=== PATIENT | male | born 1945 | race Caucasian/White ===

== ENCOUNTER 2017-10-08 09:01 | Day surgery (SDC) | payer OTHER ==
[~2017-10-08 09:01] MED LIST: ACETAMINOPHEN 325 MG TAB PO; OFLOXACIN 0.3 % (OCUFLOX) OPTH SOL 5ML OS; PHENYLEPHRINE HCL 10 % OPHTH. SOL 5ML OS; PROPARACAINE 0.5% OPHTH SOL 15ML OS
[2017-10-08] MEDS ORDERED: LIDOCAINE 1% MDV 20ML VIAL SQ ×2 (09:15)
[2017-10-08] MEDS ORDERED: PHENYLEPHRINE 2.5% OPHTH SOL 2ML As Ordered ×2 (09:46)
[2017-10-08] MEDS ORDERED: OFLOXACIN 0.3 % (OCUFLOX) OPTH SOL 5ML As Ordered ×2 (09:46)
[2017-10-08] MEDS ORDERED: TROPICAMIDE 1% OPHTH SOLN 2ML As Ordered ×2 (09:46)
[2017-10-08] MEDS ORDERED: CYCLOPENTOLATE 2% OPHTH SOLN 2ML BTL As Ordered ×2 (09:46)
[2017-10-08] MEDS ORDERED: MIDAZOLAM INJ 2 MG/2 ML VIAL (J2250) As Ordered ×2 (10:03)
[2017-10-08] MEDS ORDERED: fentaNYL 100 MCG/2 ML INJECTION (J3010) As Ordered ×2 (10:03)
[2017-10-08] MEDS: TROPICAMIDE 1% OPHTH SOLN 2ML OS ×2 (10:07)
[2017-10-08] MEDS: PHENYLEPHRINE 2.5% OPHTH SOL 2ML OS ×2 (10:07)
[2017-10-08] MEDS: LIDOCAINE 3.5 % 1ML OPHTH TOPICAL GEL OU ×2 (10:07)
[2017-10-08] MEDS: CYCLOPENTOLATE 2% OPHTH SOLN 2ML BTL OS ×2 (10:07)
[2017-10-08] MEDS: POVIDONE-IODINE 5% OPHTH PREP SOL 30ML As Ordered ×2 (10:21)
[2017-10-08] MEDS: LIDOCAINE 1% SDV 5 ML VIAL As Ordered ×2 (10:23)
[2017-10-08] MEDS: CEFUROXIME 1MG/0.1ML INTRACAMERAL INJ As Ordered ×2 (10:23)
[2017-10-08] MEDS: BALANCED SALT IRRIGATION SOLUTION 500ML BAG (FOR OR EYE MACHINE) As Ordered ×2 (10:24)
[2017-10-08] MEDS: HEALON DUET (HEALON 10MG/ML 0.55ML & HEALON ENDOCOAT 30MG/ML 0.85ML) As Ordered ×2 (10:29)
[2017-10-08] MEDS ORDERED: TRIMETHOBENZAMIDE 300 MG CAP PO ×2 (11:00)
[2017-10-08] MEDS: KETOROLAC 0.5% OPHTH SOLN OS ×2 (11:01)
[2017-10-08] MEDS: AcetaZOLAMIDE 500 MG ER CAP PO ×2 (11:01)
== END 2017-10-08 11:17 | disposition home or self-care (01) ==
LOC: M SDC 09:01
DX: H25.12 Age-related nuclear cataract, left eye (principal); H26.9 Unspecified cataract (principal); Z79.82 Long term (current) use of aspirin
CPT/HCPCS: 66984

== ENCOUNTER → 2018-01-01 | Outpatient (REF) | payer OTHER | LOC: M LAB REF 11:18 | DX: R35.0 Frequency of micturition (principal) ==

== ENCOUNTER 2018-11-15 12:09 | Emergency (ER) | payer OTHER, SELFPAY ==
[~2018-11-15] VITALS: Ht 172.7 cm; Wt 96.4 kg
[~2018-11-15 12:09] MED LIST changes: -ACETAMINOPHEN 325 MG TAB PO; +ASPI-527 PO; -OFLOXACIN 0.3 % (OCUFLOX) OPTH SOL 5ML OS; -PHENYLEPHRINE HCL 10 % OPHTH. SOL 5ML OS; -PROPARACAINE 0.5% OPHTH SOL 15ML OS
[2018-11-15] MEDS ORDERED: MORPHINE 2 MG/ML 1ML VIAL (J2270) IV PRN (12:45)
[2018-11-15 12:53] LABS: HEMATOCRIT 48.9 % (42.0-52.0); HEMOGLOBIN 16.2 g/dl (13.5-17.5); MEAN CORPUSCULAR HEMOGLOBIN 29.6 pg (27.0-33.0); MEAN CORPUSCULAR HGB CONC 33.1 g/dl (32.0-36.5); MEAN CORPUSCULAR VOLUME 89.2 fl (80.0-96.0); PLATELET COUNT, AUTOMATED 266 10^3/uL (150-450); RED BLOOD COUNT 5.48 10^6/uL (4.30-6.10); WHITE BLOOD COUNT 7.3 10^3/uL (4.0-10.0)
[2018-11-15] MEDS ORDERED: ISOVUE-370 76% 100ML VIAL (Q9967) As Ordered ONE (13:24)
[2018-11-15] MEDS ORDERED: KETOROLAC 30 MG/ML VIAL (J1885) IV ONE (15:30)
[2018-11-15] MEDS ORDERED: OXYC1TAB23 PO (15:43)
[2018-11-15] MEDS ORDERED: KETO10TAB PO (15:43)
[2018-11-15] MEDS ORDERED: CYCL5TAB PO (15:43)
[2018-11-15] MEDS ORDERED: CYCLOBENZAPRINE 10 MG TAB PO ONE (15:45)
[2018-11-15 15:55] VITALS: BP 190/89
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
== END 2018-11-15 16:02 | disposition home or self-care (01) ==
LOC: M ED 12:09
DX: S16.1XXA Strain of muscle, fascia and tendon at neck level, initial encounter (principal); V49.49XA Driver injured in collision with other motor vehicles in traffic accident, initial encounter; Y92.410 Unspecified street and highway as the place of occurrence of the external cause
CPT/HCPCS: 70450; 71275; 72125; 74177; 80047; 85027; 96374; 99284; J1885; Q9967

== ENCOUNTER 2018-11-28 15:24 | Emergency (ER) | payer OTHER ==
[~2018-11-28] VITALS: Ht 172.7 cm; Wt 95.9 kg
[~2018-11-28 15:24] MED LIST changes: +CYCL5TAB PO; +KETO10TAB PO; +OXYC1TAB23 PO
[2018-11-28] MEDS ORDERED: IBUP200C25 PO (15:33)
[2018-11-28 17:52] LABS: BASO # 0.1 10^3/uL (0.0-0.2); BASO % 0.8 % (0.0-1.0); EOS # 0.2 10^3/uL (0.0-0.50); EOS % 1.8 % (0.0-3.0); HEMATOCRIT 49.3 % (42.0-52.0); HEMOGLOBIN 16.4 g/dl (13.5-17.5); LYMPH % 22.1 % (24.0-44.0); MEAN CORPUSCULAR HGB CONC 33.3 g/dl (32.0-36.5); MEAN CORPUSCULAR VOLUME 90.1 fl (80.0-96.0); MONO # 0.8 10^3/uL (0.0-0.8); MONO % 8.4 % (0.0-5.0); NEUTROPHILS % 66.7 % (36.0-66.0); PLATELET COUNT, AUTOMATED 299 10^3/uL (150-450); RED BLOOD COUNT 5.47 10^6/uL (4.30-6.10); WHITE BLOOD COUNT 8.9 10^3/uL (4.0-10.0)
--- NOTE | 2018-11-28 17:59 | REP ---
Clinical: Chest pain and tightness. Technique: PA and lateral. Findings: Mediastinum and cardiac silhouette are normal. Lung reyes demonstrate chronic-appearing interstitial changes. No focal consolidation, effusion, or pneumothorax. Skeletal structures demonstrate age-related degenerative changes. Impression: No obvious acute cardiopulmonary process. Electronically Signed by Hunter Ugarte MD 11/28/2018 05:51 P
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
[2018-11-28 18:04] LABS: INR 0.94; PROTHROMBIN TIME 12.3 SECONDS (11.8-14.0)
[2018-11-28 18:05] LABS: PARTIAL THROMBOPLASTIN TIME 30.3 SECONDS (25.0-38.4)
[2018-11-28 18:23] LABS: ALBUMIN 4.1 GM/DL (3.2-5.2); ALT/SGPT 38 U/L (12-78); BILIRUBIN,DIRECT 0.1 MG/DL (0.0-0.2); BILIRUBIN,TOTAL 0.4 MG/DL (0.2-1.0); BLOOD UREA NITROGEN 14 MG/DL (7-18); CALCIUM LEVEL 9.3 MG/DL (8.8-10.2); CARBON DIOXIDE LEVEL 30 MEQ/L (21-32); CHLORIDE LEVEL 103 MEQ/L (98-107); CK-MB VALUE MASS < 1.0 NG/ML (<3.6); CPK CREATINE PHOSPHOKINASE 82 U/L (39-308); CREATININE FOR GFR 0.82 MG/DL (0.70-1.30); GLOMERULAR FILTRATION RATE > 60.0 (>42); GLUCOSE, FASTING 98 MG/DL (70-100); LIPASE 118 U/L (73-393); MB/CK RELATIVE INDEX 1.22 (< OR =4); NT-PRO BNP 87 PG/ML (<125); POTASSIUM SERUM 4.5 MEQ/L (3.5-5.1); SODIUM LEVEL 138 MEQ/L (136-145); TOTAL PROTEIN 7.9 GM/DL (6.4-8.2); TROPONIN I < 0.02 NG/ML (< 0.10)
[2018-11-28] MEDS ORDERED: ISOVUE-370 76% 100ML VIAL (Q9967) As Ordered ONE (18:26)
[2018-11-28 18:53] VITALS: BP 160/99
--- NOTE | 2018-11-28 19:35 | REPVR ---
EXAM: CT Angiography Chest With Contrast EXAM DATE/TIME: 11/28/2018 6:33 PM CLINICAL HISTORY: 73 years old, male; Chest pain; On breathing TECHNIQUE: Imaging protocol: Computed tomographic angiography of the chest with intravenous contrast. 3D rendering: MIP reconstructed images were created and reviewed. Radiation optimization: All CT scans at this facility use at least one of these dose optimization techniques: automated exposure control; mA and/or kV adjustment per patient size (includes targeted exams where dose is matched to clinical indication); or iterative reconstruction. Contrast material: [id number]; Contrast volume: 75 ml; Contrast route: IV; COMPARISON: CT ANGIO CHEST 11/15/2018 1:53 PM FINDINGS: Pulmonary arteries: Peripheral pulmonary artery evaluation limited by cardiac and respiratory motion artifact. Central pulmonary arteries show no intraluminal defect suggestive of clot. Great vessels off aortic arch: Atherosclerotic calcifications in the coronary vessels. Aorta: No thoracic aortic aneurysm or dissection. Lungs: Pulmonary vascular/interstitial pattern does not suggest active pulmonary edema. No suspicious lung mass or air space process. No central endobronchial lesion. Pleural space: No pleural effusion or pneumothorax. Heart: No pericardial effusion. Lymph nodes: No enlarged mediastinal lymph nodes. Bones/joints: Diffuse idiopathic skeletal hyperostosis (DISH) changes are present. IMPRESSION: 1. No evidence of acute, central pulmonary embolus. Slight limitation in evaluation of peripheral vessels secondary to cardiac and respiratory motion artifact 2. No other acute or concerning focal intrathoracic abnormality. Electronically signed by: Alexander Avila On 11/28/2018 19:34:38 PM
[2018-11-28] MEDS ORDERED: METH1TAB40 PO (20:31)
[2018-11-28] MEDS ORDERED: NAPR500T6 PO (20:31)
[2018-11-28] MEDS ORDERED: VOLT1GEL15 TOP (20:31)
--- NOTE | 2018-11-29 07:16 | ECGEPIP ---
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
== END 2018-11-28 20:40 | disposition home or self-care (01) ==
LOC: M ED 15:24
DX: M19.072 Primary osteoarthritis, left ankle and foot (principal); M62.838 Other muscle spasm; R53.83 Other fatigue; I10 Essential (primary) hypertension; E78.5 Hyperlipidemia, unspecified; K21.9 Gastro-esophageal reflux disease without esophagitis
CPT/HCPCS: 71046; 71275; 73610; 80048; 80076; 82550; 82553; 83690; 83880; 84484; 85025; 85610; 85730; 93005; 99284; Q9967

== ENCOUNTER 2019-02-01 17:08 | Inpatient (IN) | payer MEDICARE, OTHER, SELFPAY ==
[~2019-02-01] VITALS: Ht 172.7 cm; Wt 96.7 kg
[~2019-02-01 17:08] MED LIST changes: +IBUP200C25 PO; +METH1TAB40 PO; +NAPR500T6 PO; +VOLT1GEL15 TOP
[2019-02-01] MEDS ORDERED: ASPI81TA85 PO (17:15)
--- NOTE | 2019-02-01 18:28 | REP ---
Single view chest: 02/01/2019. Indication: Chest pain. Comparison: 11/28/2018. Findings: The lungs are clear. There is no joint effusion or pneumothorax. The cardiac silhouette is unremarkable. Impression: Clear lungs. Electronically Signed by Alexis Garcia DO 02/01/2019 06:19 P
[2019-02-01 18:51] LABS: BASO # 0.1 10^3/uL (0.0-0.2); BASO % 1.2 % (0.0-1.0); EOS # 0.2 10^3/uL (0.0-0.5); EOS % 2.5 % (0.0-3.0); HEMATOCRIT 49.2 % (42.0-52.0); HEMOGLOBIN 16.1 g/dl (13.5-17.5); LYMPH # 1.6 10^3/uL (1.5-5.0); LYMPH % 23.2 % (24.0-44.0); MEAN CORPUSCULAR HEMOGLOBIN 29.5 pg (27.0-33.0); MEAN CORPUSCULAR HGB CONC 32.7 g/dl (32.0-36.5); MEAN CORPUSCULAR VOLUME 90.3 fl (80.0-96.0); MONO # 0.6 10^3/uL (0.0-0.8); MONO % 8.5 % (0.0-5.0); NEUTROPHILS # 4.5 10^3/uL (1.5-8.5); NEUTROPHILS % 64.5 % (36.0-66.0); PLATELET COUNT, AUTOMATED 259 10^3/uL (150-450); RED BLOOD COUNT 5.45 10^6/uL (4.30-6.10); WHITE BLOOD COUNT 6.9 10^3/uL (4.0-10.0)
[2019-02-01] MEDS: LABETALOL HCL 100 MG/20 ML VIAL IV STA ×2 (19:06→19:11)
[2019-02-01 19:24] LABS: ALBUMIN 3.9 GM/DL (3.2-5.2); ALT/SGPT 26 U/L (12-78); BILIRUBIN,DIRECT < 0.1 MG/DL (0.0-0.2); BILIRUBIN,TOTAL 0.4 MG/DL (0.2-1.0); BLOOD UREA NITROGEN 13 MG/DL (7-18); CALCIUM LEVEL 9.7 MG/DL (8.8-10.2); CARBON DIOXIDE LEVEL 27 MEQ/L (21-32); CHLORIDE LEVEL 106 MEQ/L (98-107); CK-MB VALUE MASS 1.2 NG/ML (<3.6); CPK CREATINE PHOSPHOKINASE 105 U/L (39-308); CREATININE FOR GFR 0.72 MG/DL (0.70-1.30); FREE T4 0.97 NG/DL (0.76-1.46); GLOMERULAR FILTRATION RATE > 60.0 (>42); GLUCOSE, FASTING 102 MG/DL (70-100); MB/CK RELATIVE INDEX 1.14 (< OR =4); POTASSIUM SERUM 4.4 MEQ/L (3.5-5.1); SODIUM LEVEL 141 MEQ/L (136-145); TOTAL PROTEIN 7.3 GM/DL (6.4-8.2); TROPONIN I < 0.02 NG/ML (< 0.10)
[2019-02-01] MEDS ORDERED: ISOVUE-370 76% 100ML VIAL (Q9967) As Ordered ONE (19:32)
[2019-02-01] MEDS ORDERED: LABETALOL HCL 100 MG/20 ML VIAL IV STA ×2 (20:06→20:53)
--- NOTE | 2019-02-01 20:34 | REPVR ---
PROCEDURE INFORMATION: Exam: CT Angiography Chest With Contrast Exam date and time: 02/01/2019 7:44 PM Clinical history: 73 years old, male; Other: HTN; Additional info: HTN R/O dissection TECHNIQUE: Imaging protocol: Computed tomographic angiography of the chest with intravenous contrast. 3D rendering: MIP reconstructed images were created and reviewed. Radiation optimization: All CT scans at this facility use at least one of these dose optimization techniques: automated exposure control; mA and/or kV adjustment per patient size (includes targeted exams where dose is matched to clinical indication); or iterative reconstruction. Contrast material: ISOVUE 370; Contrast volume: 100 ml; Contrast route: IV; COMPARISON: CT ANGIO CHEST 11/28/2018 6:32 PM FINDINGS: Pulmonary arteries: No filling defects in the pulmonary arteries to suggest pulmonary emboli. Aorta: Unremarkable. No aortic aneurysm. No aortic dissection. Lungs: Unremarkable. No consolidation. No masses. Pleural space: Unremarkable. No pneumothorax. No pleural effusion. Heart: Unremarkable. No cardiomegaly. No pericardial effusion. Lymph nodes: Unremarkable. No enlarged lymph nodes. Bones/joints: Unremarkable. No acute fracture. Soft tissues: Unremarkable. IMPRESSION: 1. No acute arterial abnormality. Moderate coronary artery calcification. 2. No filling defects in the pulmonary arteries to suggest pulmonary emboli. Electronically signed by: Alexandro Gustafson On 02/01/2019 20:34:38 PM
--- NOTE | 2019-02-01 20:40 | REPVR ---
PROCEDURE INFORMATION: Exam: CT Angiography Abdomen and Pelvis With Contrast Exam date and time: 02/01/2019 7:44 PM Clinical history: 73 years old, male; Other: HTN; Additional info: HTN R/O dissection TECHNIQUE: Imaging protocol: Computed tomographic angiography of the abdomen and pelvis with intravenous contrast material. 3D rendering: MIP reconstructed images were created and reviewed. Radiation optimization: All CT scans at this facility use at least one of these dose optimization techniques: automated exposure control; mA and/or kV adjustment per patient size (includes targeted exams where dose is matched to clinical indication); or iterative reconstruction. Contrast material: ISOVUE 370; Contrast volume: 100 ml; Contrast route: IV; COMPARISON: CT ABD/PEL W/IV CONTRAST ONLY 11/15/2018 1:53 PM FINDINGS: VASCULATURE: Aorta: No aortic aneurysm. No aortic dissection. Celiac trunk and mesenteric arteries: Mild SMA stenosis. Renal arteries: Duplicated right renal arteries. Right iliac arteries: No occlusion or significant stenosis. Left iliac arteries: No occlusion or significant stenosis. ABDOMEN and PELVIS: Liver: No mass. Gallbladder and bile ducts: Unremarkable. No calcified stones. No ductal dilation. Pancreas: Unremarkable. No mass. No ductal dilation. Spleen: Unremarkable. No splenomegaly. Adrenals: Unremarkable. No mass. Kidneys and ureters: Largest right the left inferior pole kidney measures 6.3 cm. Stomach and bowel: Mild colonic diverticulosis without evidence for acute diverticulitis. Right lateral spigelian hernia containing protruding small and large bowel. Mild colonic diverticulosis without evidence for acute diverticulitis. Appendix: No evidence of appendicitis. Intraperitoneal space: Unremarkable. No free air. No significant fluid collection. Retroperitoneal space: Multiple perirenal and/or exophytic cysts or lymphangiomas. Lymph nodes: Unremarkable. No enlarged lymph nodes. Bladder: Severe bladder distention. Reproductive: Severe irregular heterogeneous enhancing prostate gland enlargement measuring 7.7 cm the. Prostate gland protrudes into the bladder and appears irregular, correlate with PSA. Bones/joints: No acute fracture. No dislocation. Soft tissues: Unremarkable. IMPRESSION: 1. No acute arterial abnormality. 2. Severe bladder distention. 3. Severe irregular heterogeneous enhancing prostate gland enlargement measuring 7.7 cm the. 4. Prostate gland protrudes into the bladder and appears irregular, correlate with PSA. 5. Right lateral spigelian hernia containing protruding small and large bowel. 6. Mild colonic diverticulosis without evidence for acute diverticulitis. Electronically signed by: Alexandro Gustafson On 02/01/2019 20:39:35 PM
[2019-02-01] MEDS ORDERED: amLODIPine 10 MG TAB PO ONE (21:45)
[2019-02-01] MEDS ORDERED: NITROGLYCERIN 2% OINT 1 GM *U/D* PKT TOP SCH (22:00)
[2019-02-01] MEDS: LABETALOL 100 MG TAB PO SCH (22:00)
[2019-02-01] MEDS ORDERED: tiZANidine 4 MG TAB PO ONE (22:30)
[2019-02-01] MEDS ORDERED: KETOROLAC 30 MG/ML VIAL (J1885) IV ONE (22:45)
[2019-02-01] MEDS ORDERED: traZODone 25MG PER 1/2 TABLET PO PRN (22:45)
[2019-02-01] MEDS ORDERED: ULTRACET TAB PO PRN (22:45)
[2019-02-02] VITALS (15 sets, daily range): BP systolic 106–210; BP diastolic 64–100
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
[2019-02-02] MEDS ORDERED: NS 500 ML IV ONE (01:30)
[2019-02-02 05:26] LABS: HEMATOCRIT 43.7 % (42.0-52.0); HEMOGLOBIN 14.6 g/dl (13.5-17.5); MEAN CORPUSCULAR HEMOGLOBIN 29.9 pg (27.0-33.0); MEAN CORPUSCULAR HGB CONC 33.4 g/dl (32.0-36.5); MEAN CORPUSCULAR VOLUME 89.5 fl (80.0-96.0); PLATELET COUNT, AUTOMATED 227 10^3/uL (150-450); RED BLOOD COUNT 4.88 10^6/uL (4.30-6.10); WHITE BLOOD COUNT 8.3 10^3/uL (4.0-10.0)
[2019-02-02 05:50] LABS: HEMOGLOBIN A1c 5.7 %
[2019-02-02 05:53] LABS: BLOOD UREA NITROGEN 12 MG/DL (7-18); CALCIUM LEVEL 8.7 MG/DL (8.8-10.2); CARBON DIOXIDE LEVEL 27 MEQ/L (21-32); CHLORIDE LEVEL 103 MEQ/L (98-107); CHOLESTEROL LEVEL 170 MG/DL (<200); CHOLESTEROL RISK RATIO 2.786 (<5); CREATININE FOR GFR 0.83 MG/DL (0.70-1.30); GLOMERULAR FILTRATION RATE > 60.0 (>42); GLUCOSE, FASTING 99 MG/DL (70-100); HDL CHOLESTEROL 61 MG/DL (>40); LDL CHOLESTEROL 88 MG/DL (<100); NON-HDL-C 109 MG/DL; POTASSIUM SERUM 3.9 MEQ/L (3.5-5.1); SODIUM LEVEL 138 MEQ/L (136-145); TRIGLYCERIDES LEVEL 103 MG/DL (<150)
--- NOTE | 2019-02-02 06:23 | ECGEPIP ---
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
[2019-02-02] MEDS: LABETALOL 100 MG TAB PO SCH (09:00)
--- NOTE | 2019-02-02 09:07 | REP ---
Renal vascular ultrasound: Right Kidney: Renal length 12.2 cm. Extraparenchymal renal artery. Peak renal artery flow velocity the 78.8 cm/ sec Peak aortic velocity: 99.9 cm/sec Renal/aortic ratio: 0.8 Intraparenchymal renal arteries. Resistive index: upper pole 0.69 mid pole 0.7 a lower pole 0.70 Acceleration time: upper pole 0.06 mid pole 0.03 lower pole 0.03 Left kidney: Renal length 12.4 cm. Extraparenchymal renal artery: Peak renal artery flow velocity: 116.9 cm/sec. Peak aortic velocity: 99.9 cm/sec Renal/aortic ratio: 1.2 Intraparenchymal renal arteries: Resistive index: Upper pole 0.61 mid pole 0.68 lower pole 0.70 Acceleration time: Upper pole 0.03 mid pole 0.03 lower pole 0.03 Impression: There is no ultrasonographic evidence of renal artery stenosis. Bilateral renal ultrasound: Comparison is the abdomen/pelvis CT dated 11/15/2018. The right kidney measures 12.2 x 6.1 x 5.5 cm. The left kidney measures 12.4 x 5.4 x 6.5 cm. The kidneys are normal size. Renal cortical echogenicity is normal bilaterally. There is no hydronephrosis on the right on the left. There are no renal calculi. There are no solid renal masses. There is a mass exophytic right renal upper pole cyst measuring 3.8 x 4.3 x 6.5 cm. There is a right renal cortical cyst at the mid pole laterally measuring 0.8 x 0.7 x 0.8 cm. These right renal cysts are not significantly changed from the comparison CT. There is an exophytic left renal lower pole cyst measuring 8.0 x 4.5-7.0 cm, not significantly changed from the comparison CT. There are no solid renal masses on the right. No renal calculi are identified. Bladder: Along the posterior inferior wall of the bladder there is a mass protruding into the bladder lumen measuring 4.1 x 3.3 x 4.3 cm. This is immediately adjacent to the prostate. The prostate is enlarged measuring 6.0 x 7.1 x 7.5 cm. Impression: There is a bladder mass along the inferior posterior bladder wall, immediately adjacent to the prostate. I suspect that this is a bladder mass, however, this could represent protrusion of the enlarged prostate into the bladder. The prostate is enlarged. There are bilateral renal cysts as described. There are no solid renal masses. No hydronephrosis. No renal calculi. Electronically Signed by Erick Oakley MD 02/02/2019 08:58 A
[2019-02-02] MEDS: LIDOCAINE 5% (LIDODERM) PATCH TD SCH (09:10)
[2019-02-02] MEDS: amLODIPine 10 MG TAB PO SCH (09:12)
[2019-02-02] MEDS: hydrALAZINE INJ 20 MG/ML VIAL IV PRN ×2 (11:44→17:36)
[2019-02-02] MEDS ORDERED: AMLO10TA5 PO (12:27)
[2019-02-02] MEDS ORDERED: TOPR25TA PO (12:27)
[2019-02-02] MEDS ORDERED: TIZA4TAB4 PO (12:27)
[2019-02-02] MEDS ORDERED: TRAZ-252 PO (12:27)
[2019-02-02] MEDS ORDERED: TRAM37.53 PO (12:27)
[2019-02-02] MEDS ORDERED: LISI20TA19 PO (12:27)
--- NOTE | 2019-02-02 12:55 | IPNPDOC ---
Text Note Date of Service The patient was seen on 02/02/19. NOTE Subjective: Patient continues to be anxious, his blood pressure fluctuates from 160 to 210. Patient denies fever, chills, nausea, vomiting, chest pain, palpitations, diarrhea or dysuria Objective: Objective:VITAL SIGNS: Please see below. GENERAL APPEARANCE: Well-nourished, well-developed, not in apparent distress HEENT: Normocephalic, atraumatic. Mucous members moist and pink CARDIOVASCULAR: Regular rate and rhythm. No murmurs, rubs or gallops. Radial pulses are intact. There is no lower extremity edema LUNGS: CTA ABDOMEN: Bowel sounds are hypoactive. Abdomen is soft and nontender. MUSCULOSKELETAL: Range of motion is intact in all 4 extremities NEUROLOGICAL: Cranial nerves II-12 are grossly intact. Speech is not dysarthric Assessment and plan: Patient is 73 years old male with past medical history of poorly controlled hypertension, osteoarthritis presented hospital with hypertensive urgency Hypertensive urgency Secondary to noncompliance to medication, stress Hydralazine when necessary with parameters I will start lisinopril with chlorthalidone. No renal stenosis on the Doppler ultrasound Labetalol on hold due to bradycardia Cardiac diet Chronic cervical neck and back pain Secondary to spinal stenosis and osteoarthritis Pain management History of retinal detachment with cardiac surgery Follow-up with mobile nurse in the outpatient settings Deep vein thrombosis (DVT) prophylaxis VS,Fishbone, I+O VS, Fishbone, I+O Laboratory Tests 02/01/19 17:57 02/02/19 05:10 Vital Signs Date Time Temp Pulse Resp B/P (MAP) Pulse Ox O2 Delivery O2 Flow Rate FiO2 02/02/19 12:02 69 138/76 (96) 02/02/19 08:00 97.4 16 96 Room Air I&O- Last 24 Hours up to 6 AM 02/02/19 06:00 Output Total 450 ml Balance -450 ml RUSTAM JONES DO Feb 02, 2019 12:55
[2019-02-02] MEDS ORDERED: CHLORTHALIDONE 25 MG TAB PO ONE (13:00)
[2019-02-02] MEDS ORDERED: LISINOPRIL 20 MG TAB PO ONE ×2 (13:00→17:45)
[2019-02-02] MEDS: CHLORTHALIDONE 12.5MG PER 1/2 TABLET PO SCH (18:04)
[2019-02-02] MEDS ORDERED: **NOTE PATIENT COMMENT** MISC XX SCH (21:00)
[2019-02-02] MEDS: tiZANidine 4 MG TAB PO PRN (21:10)
[2019-02-02] MEDS: METOPROLOL TART 25 MG TABLET PO SCH (21:10)
[2019-02-03] VITALS: BP 137/57
[2019-02-03] MEDS: SIMETHICONE 80 MG CHEW TAB PO SCH ×3 (00:31→11:57)
[2019-02-03 04:00] VITALS: BP 126/70
[2019-02-03] MEDS: tiZANidine 4 MG TAB PO PRN ×2 (05:09→13:57)
[2019-02-03 05:52] LABS: HEMATOCRIT 46.9 % (42.0-52.0); HEMOGLOBIN 15.3 g/dl (13.5-17.5); MEAN CORPUSCULAR HEMOGLOBIN 29.2 pg (27.0-33.0); MEAN CORPUSCULAR HGB CONC 32.6 g/dl (32.0-36.5); MEAN CORPUSCULAR VOLUME 89.5 fl (80.0-96.0); PLATELET COUNT, AUTOMATED 246 10^3/uL (150-450); RED BLOOD COUNT 5.24 10^6/uL (4.30-6.10); WHITE BLOOD COUNT 11.5 10^3/uL (4.0-10.0)
[2019-02-03 06:07] LABS: BLOOD UREA NITROGEN 13 MG/DL (7-18); CARBON DIOXIDE LEVEL 29 MEQ/L (21-32); CHLORIDE LEVEL 103 MEQ/L (98-107); CREATININE FOR GFR 1.04 MG/DL (0.70-1.30); GLOMERULAR FILTRATION RATE > 60.0 (>42); GLUCOSE, FASTING 96 MG/DL (70-100); POTASSIUM SERUM 3.9 MEQ/L (3.5-5.1); SODIUM LEVEL 137 MEQ/L (136-145)
[2019-02-03] MEDS: METOPROLOL TART 25 MG TABLET PO SCH (07:45)
[2019-02-03 08:00] VITALS: BP 111/59
[2019-02-03 08:43] VITALS: BP 111/59
[2019-02-03] MEDS: amLODIPine 10 MG TAB PO SCH (08:43)
[2019-02-03] MEDS ORDERED: CHLORTHALIDONE 12.5MG PER 1/2 TABLET PO SCH (09:00)
[2019-02-03] MEDS ORDERED: LISINOPRIL 40 MG TAB PO SCH (09:00)
[2019-02-03] MEDS ORDERED: TAMSULOSIN 0.4 MG CAP PO SCH (09:00)
[2019-02-03] MEDS: CHLORTHALIDONE 12.5MG PER 1/2 TABLET PO SCH (09:04)
[2019-02-03] MEDS: LIDOCAINE 5% (LIDODERM) PATCH TD SCH (09:05)
[2019-02-03] MEDS ORDERED: ACETAMINOPHEN TAB 650MG DOSE (2X325MG) PO PRN (11:45)
[2019-02-03 12:00] VITALS: BP 144/70
--- NOTE | 2019-02-03 12:01 | IPNPDOC ---
Text Note Date of Service The patient was seen on 02/03/19. NOTE Subjective: Patient's blood pressure is under control in the morning. Later today he developed low-grade fever of 100.2. He denies any chills, shortness of breath, palpitations, cough, diarrhea or dysuria Objective: Objective:VITAL SIGNS: Please see below. GENERAL APPEARANCE: Well-nourished, well-developed, not in apparent distress HEENT: Normocephalic, atraumatic. Mucous members moist and pink CARDIOVASCULAR: Regular rate and rhythm. No murmurs, rubs or gallops. Radial pulses are intact. There is no lower extremity edema LUNGS: CTA ABDOMEN: Bowel sounds are hypoactive. Abdomen is soft and nontender. MUSCULOSKELETAL: Range of motion is intact in all 4 extremities NEUROLOGICAL: Cranial nerves II-12 are grossly intact. Speech is not dysarthric Assessment and plan: Patient is 73 years old male with past medical history of poorly controlled hypertension, osteoarthritis presented hospital with hypertensive urgency Hypertensive urgency Secondary to noncompliance to medication, stress Hydralazine when necessary with parameters I started lisinopril with chlorthalidone. No renal stenosis on the Doppler ultrasound Labetalol on hold due to bradycardia Cardiac diet Chronic cervical neck and back pain Secondary to spinal stenosis and osteoarthritis Pain management History of retinal detachment Follow-up with job counselor in the outpatient settings Low-grade fever I will check blood culture, respiratory panel, chest x-ray, pro-calcitonin Tylenol when necessary Deep vein thrombosis (DVT) prophylaxis VS,Fishbone, I+O VS, Fishbone, I+O Laboratory Tests 02/03/19 05:35 Vital Signs Date Time Temp Pulse Resp B/P (MAP) Pulse Ox O2 Delivery O2 Flow Rate FiO2 02/03/19 08:43 57 111/59 02/03/19 08:00 99.2 18 97 Room Air I&O- Last 24 Hours up to 6 AM 02/03/19 06:00 Intake Total 600 ml Output Total 0 ml Balance 600 ml RUSTAM JONES DO Feb 03, 2019 12:01
--- NOTE | 2019-02-03 13:44 | REP ---
Chest x-ray: Two views. History: Pneumonia. Comparison study: February 01 2019. Findings: The lungs are symmetrically aerated and free of infiltrate. Pleural angles are sharp. EKG electrodes are seen. Heart is not enlarged. Pulmonary vasculature is not increased. Impression: No infiltrate seen. No acute disease. Electronically Signed by Thomas Caban MD 02/03/2019 01:36 P
[2019-02-03 14:00] VITALS: BP 150/80
[2019-02-03] MEDS ORDERED: CHLO125TA PO (15:05)
[2019-02-03] MEDS ORDERED: LIDO5TD TD (15:05)
[2019-02-03] MEDS ORDERED: METO1TAB87 PO (15:05)
[2019-02-03] MEDS ORDERED: SIME80TA PO (15:05)
[2019-02-03] MEDS ORDERED: FLOM0.4C39 PO (15:05)
[2019-02-03] MEDS ORDERED: LISI40TA PO (15:05)
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
== END 2019-02-03 16:05 | disposition home or self-care (01) | DRG 305 ==
LOC: M ED 17:08 → M ED INP 17:09 → M PCU 23:30 → INTOOBSV 02-03 12:01 → OBSVTOIN 02-03 12:01
PROVIDERS: ADMIT General Practice; ATTEND Internal Medicine
DX: I16.0 Hypertensive urgency (principal); M54.12 Radiculopathy, cervical region; M54.16 Radiculopathy, lumbar region; I25.10 Atherosclerotic heart disease of native coronary artery without angina pectoris; Z98.42 Cataract extraction status, left eye; Z96.1 Presence of intraocular lens; Z87.891 Personal history of nicotine dependence; F43.10 Post-traumatic stress disorder, unspecified; Z91.14 Patient's other noncompliance with medication regimen; R50.9 Fever, unspecified; Z91.048 Other nonmedicinal substance allergy status

== ENCOUNTER 2019-02-22 10:13 | Emergency (ER) | payer MEDICARE, SELFPAY ==
[~2019-02-22] VITALS: Ht 172.7 cm; Wt 90.9 kg
[2019-02-22 10:13] VITALS: BP 158/78
[~2019-02-22 10:13] MED LIST changes: +AMLO10TA5 PO; +ASPI81TA85 PO; +CHLO125TA PO; +FLOM0.4C39 PO; +LIDO5TD TD; +LISI20TA19 PO; +LISI40TA PO; +METO1TAB87 PO; +SIME80TA PO; +TIZA4TAB4 PO; +TOPR25TA PO; +TRAM37.53 PO; +TRAZ-252 PO
[2019-02-22] MEDS ORDERED: TRAZ-252 PO (10:41)
[2019-02-22] MEDS ORDERED: TIZA4CAP PO (10:41)
== END 2019-02-22 10:50 | disposition home or self-care (01) ==
LOC: M ED 10:13
DX: M54.89 Other dorsalgia (principal); R01.1 Cardiac murmur, unspecified; F41.9 Anxiety disorder, unspecified; I10 Essential (primary) hypertension; Z76.0 Encounter for issue of repeat prescription; G47.00 Insomnia, unspecified; F43.10 Post-traumatic stress disorder, unspecified; K21.9 Gastro-esophageal reflux disease without esophagitis; N40.0 Benign prostatic hyperplasia without lower urinary tract symptoms; Z79.82 Long term (current) use of aspirin; Z79.899 Other long term (current) drug therapy; Z91.89 Other specified personal risk factors, not elsewhere classified

== ENCOUNTER → 2019-06-01 | Outpatient (REF) | payer SELFPAY ==
[~2019-06-01] MED LIST changes: +TIZA4CAP PO
== END ==
LOC: M LAB REF 09:42
PROVIDERS: ATTEND Physician Assistant
DX: R31.0 Gross hematuria (principal)

== ENCOUNTER 2021-06-23 16:56 | Inpatient (IN) | payer MEDICARE, SELFPAY ==
[~2021-06-23] VITALS: Ht 172.7 cm; Wt 98.3 kg
[~2021-06-23 16:56] MED LIST changes: -AMLO10TA5 PO; +AMLO1TAB25 PO; -ASPI81TA85 PO; +ASPI81TA86 PO; -LISI20TA19 PO; +LISI20TA35 PO; -LISI40TA PO; +LISI40TA4 PO; +METH-1164 PO; -METH1TAB40 PO; +SIME80CH5 PO; -SIME80TA PO; +TIZA10TA PO; -TIZA4TAB4 PO
[2021-06-23 18:19] LABS: BASO # 0.1 10^3/uL (0.0-0.2); BASO % 0.8 % (0.0-1.0); EOS # 0.2 10^3/uL (0.0-0.5); EOS % 2.3 % (0.0-3.0); HEMATOCRIT 43.5 % (42.0-52.0); HEMOGLOBIN 14.4 g/dl (13.5-17.5); LYMPH # 1.2 10^3/uL (1.5-5.0); LYMPH % 13.1 % (24.0-44.0); MEAN CORPUSCULAR HEMOGLOBIN 28.9 pg (27.0-33.0); MEAN CORPUSCULAR HGB CONC 33.1 g/dl (32.0-36.5); MEAN CORPUSCULAR VOLUME 87.2 fl (80.0-96.0); MONO # 1.1 10^3/uL (0.0-0.8); MONO % 11.6 % (2.0-8.0); NEUTROPHILS # 6.6 10^3/uL (1.5-8.5); PLATELET COUNT, AUTOMATED 267 10^3/uL (150-450); RED BLOOD COUNT 4.99 10^6/uL (4.30-6.10); WHITE BLOOD COUNT 9.1 10^3/uL (4.0-10.0)
[2021-06-23] MEDS ORDERED: LIDOCAINE 2% 5ML JELLY UROJET TOP ONE (18:25)
[2021-06-23 18:46] LABS: CK-MB VALUE MASS < 1.0 NG/ML (<3.6); CPK CREATINE PHOSPHOKINASE 95 U/L (39-308); MB/CK RELATIVE INDEX 1.05 (< OR =4)
[2021-06-23 18:53] LABS: ALBUMIN 3.8 GM/DL (3.2-5.2); BILIRUBIN,DIRECT 0.1 MG/DL (0.0-0.2); BILIRUBIN,TOTAL 0.4 MG/DL (0.2-1.0); TOTAL PROTEIN 7.4 GM/DL (6.4-8.2)
[2021-06-23 19:21] LABS: RSV AMPLIFICATION NEGATIVE (NEGATIVE)
[2021-06-23] MEDS ORDERED: MORPHINE 2 MG/ML 1ML VIAL IV ONE (19:30)
[2021-06-23] MEDS ORDERED: hydrALAZINE 20MG/ML 1ML VIAL (J0360 PER 20MG) IV ONE ×2 (20:20→22:30)
[2021-06-23] MEDS ORDERED: FLOM0.4C39 PO (20:54)
[2021-06-23] MEDS ORDERED: HOME MED LIST COMPLETE! XX SCH (21:00)
[2021-06-23] MEDS ORDERED: HYDROMORPHONE HCL 0.5 MG/ 0.5 ML SYRINGE (J1170 PER 1) IV PRN (22:40)
[2021-06-23] MEDS: NS 1,000 ML IV SCH (23:45)
[2021-06-24] VITALS (7 sets, daily range): BP systolic 152–200; BP diastolic 70–101
[2021-06-24 00:44] LABS: HEMATOCRIT 43.4 % (42.0-52.0); HEMOGLOBIN 14.4 g/dl (13.5-17.5)
[2021-06-24] MEDS ORDERED: hydrALAZINE 20MG/ML 1ML VIAL (J0360 PER 20MG) IV ONE (02:00)
[2021-06-24] MEDS ORDERED: hydrALAZINE 20MG/ML 1ML VIAL (J0360 PER 20MG) IV PRN (03:00)
[2021-06-24] MEDS ORDERED: **hydrALAZINE** 10 MG TAB PO PRN (04:00)
[2021-06-24] MEDS ORDERED: cloNIDine 0.1MG TABLET PO ONE (06:00)
[2021-06-24] MEDS: NS 1,000 ML IV SCH (06:24)
[2021-06-24 06:39] LABS: HEMATOCRIT 44.8 % (42.0-52.0); HEMOGLOBIN 14.8 g/dl (13.5-17.5)
[2021-06-24 07:09] LABS: CREATININE FOR GFR 1.85 MG/DL (0.70-1.30); GLOMERULAR FILTRATION RATE 38.2 (>42)
[2021-06-24] MEDS: TAMSULOSIN 0.4 MG CAP PO SCH (09:02)
[2021-06-24] MEDS ORDERED: NORCO, ANEXSIA 5/325MG TABLET (HYDROcodone/ACETAMINOPHEN) PO PRN (09:50)
[2021-06-24] MEDS ORDERED: ACETAMINOPHEN TAB 650MG DOSE (2X325MG) PO PRN (09:50)
[2021-06-24] MEDS: CARVedilol 3.125 MG TAB PO SCH ×2 (10:22→20:09)
[2021-06-24 11:56] LABS: HEMATOCRIT 41.3 % (42.0-52.0)
[2021-06-24] MEDS: **hydrALAZINE HCL** 25 MG TAB PO PRN ×2 (12:27→18:50)
[2021-06-25 06:00] VITALS: BP 172/90
[2021-06-25 06:01] LABS: BASO # 0.1 10^3/uL (0.0-0.2); BASO % 0.7 % (0.0-1.0); EOS # 0.2 10^3/uL (0.0-0.5); EOS % 2.4 % (0.0-3.0); HEMATOCRIT 41.8 % (42.0-52.0); HEMOGLOBIN 14.1 g/dl (13.5-17.5); LYMPH # 1.9 10^3/uL (1.5-5.0); LYMPH % 19.7 % (24.0-44.0); MEAN CORPUSCULAR HEMOGLOBIN 29.4 pg (27.0-33.0); MEAN CORPUSCULAR HGB CONC 33.7 g/dl (32.0-36.5); MEAN CORPUSCULAR VOLUME 87.1 fl (80.0-96.0); MONO % 10.6 % (2.0-8.0); NEUTROPHILS # 6.3 10^3/uL (1.5-8.5); NEUTROPHILS % 66.2 % (36.0-66.0); PLATELET COUNT, AUTOMATED 292 10^3/uL (150-450); WHITE BLOOD COUNT 9.6 10^3/uL (4.0-10.0)
[2021-06-25 06:33] LABS: CREATININE FOR GFR 1.34 MG/DL (0.70-1.30); GLOMERULAR FILTRATION RATE 55.5 (>42); POTASSIUM SERUM 3.7 MEQ/L (3.5-5.1)
[2021-06-25] MEDS: CARVedilol 3.125 MG TAB PO SCH ×2 (10:22→20:32)
[2021-06-25] MEDS: TAMSULOSIN 0.4 MG CAP PO SCH (10:22)
[2021-06-25] MEDS: **hydrALAZINE HCL** 25 MG TAB PO PRN (10:24)
[2021-06-25] MEDS: lisinopriL 5 MG TAB PO SCH (13:50)
[2021-06-25 14:00] VITALS: BP 140/70
[2021-06-25 18:00] VITALS: BP 158/80
[2021-06-25] MEDS: RAMELTEON 8 MG TAB (ROZEREM) PO PRN (21:23)
[2021-06-26 04:45] LABS: BASO # 0.1 10^3/uL (0.0-0.2); BASO % 0.6 % (0.0-1.0); EOS # 0.4 10^3/uL (0.0-0.5); EOS % 3.3 % (0.0-3.0); HEMATOCRIT 43.7 % (42.0-52.0); HEMOGLOBIN 14.6 g/dl (13.5-17.5); LYMPH # 1.6 10^3/uL (1.5-5.0); LYMPH % 14.8 % (24.0-44.0); MEAN CORPUSCULAR HEMOGLOBIN 29.2 pg (27.0-33.0); MEAN CORPUSCULAR HGB CONC 33.4 g/dl (32.0-36.5); MEAN CORPUSCULAR VOLUME 87.4 fl (80.0-96.0); MONO # 1.2 10^3/uL (0.0-0.8); MONO % 10.7 % (2.0-8.0); NEUTROPHILS # 7.8 10^3/uL (1.5-8.5); NEUTROPHILS % 70.3 % (36.0-66.0); PLATELET COUNT, AUTOMATED 320 10^3/uL (150-450); WHITE BLOOD COUNT 11.1 10^3/uL (4.0-10.0)
[2021-06-26 05:13] LABS: CALCIUM LEVEL 8.6 MG/DL (8.8-10.2); CREATININE FOR GFR 1.35 MG/DL (0.70-1.30)
[2021-06-26 06:07] VITALS: BP 110/64
[2021-06-26] MEDS: TAMSULOSIN 0.4 MG CAP PO SCH (09:02)
[2021-06-26] MEDS: lisinopriL 5 MG TAB PO SCH (09:03)
[2021-06-26] MEDS: CARVedilol 3.125 MG TAB PO SCH ×2 (09:03→21:00)
[2021-06-26] MEDS: MIRALAX *UNIT DOSE* 17GM PACKET PO SCH (13:38)
[2021-06-26 14:00] VITALS: BP 130/65
[2021-06-26 18:00] VITALS: BP 118/56
[2021-06-26] MEDS: RAMELTEON 8 MG TAB (ROZEREM) PO PRN (21:15)
[2021-06-26 21:20] VITALS: BP 92/64
[2021-06-27 04:14] VITALS: BP 140/73
[2021-06-27 06:20] LABS: BASO # 0.1 10^3/uL (0.0-0.2); BASO % 0.7 % (0.0-1.0); EOS # 0.5 10^3/uL (0.0-0.5); EOS % 3.8 % (0.0-3.0); HEMATOCRIT 45.7 % (42.0-52.0); HEMOGLOBIN 15.2 g/dl (13.5-17.5); LYMPH # 1.9 10^3/uL (1.5-5.0); LYMPH % 15.3 % (24.0-44.0); MEAN CORPUSCULAR HGB CONC 33.3 g/dl (32.0-36.5); MEAN CORPUSCULAR VOLUME 87.2 fl (80.0-96.0); MONO # 1.4 10^3/uL (0.0-0.8); MONO % 11.5 % (2.0-8.0); NEUTROPHILS # 8.3 10^3/uL (1.5-8.5); NEUTROPHILS % 68.3 % (36.0-66.0); PLATELET COUNT, AUTOMATED 353 10^3/uL (150-450); RED BLOOD COUNT 5.24 10^6/uL (4.30-6.10); WHITE BLOOD COUNT 12.1 10^3/uL (4.0-10.0)
[2021-06-27 06:34] LABS: CALCIUM LEVEL 9.3 MG/DL (8.8-10.2); CREATININE FOR GFR 1.38 MG/DL (0.70-1.30); GLOMERULAR FILTRATION RATE 53.6 (>42); POTASSIUM SERUM 4.1 MEQ/L (3.5-5.1)
[2021-06-27] MEDS: MIRALAX *UNIT DOSE* 17GM PACKET PO SCH (10:00)
[2021-06-27] MEDS: lisinopriL 5 MG TAB PO SCH (10:00)
[2021-06-27] MEDS: TAMSULOSIN 0.4 MG CAP PO SCH (10:00)
[2021-06-27] MEDS: CARVedilol 3.125 MG TAB PO SCH ×2 (10:00→21:07)
[2021-06-27 14:00] VITALS: BP 107/76
[2021-06-27 21:00] VITALS: BP 133/75
[2021-06-27] MEDS: RAMELTEON 8 MG TAB (ROZEREM) PO PRN (21:07)
[2021-06-28 05:57] VITALS: BP 116/54
[2021-06-28 07:48] LABS: HEMATOCRIT 43.2 % (42.0-52.0); HEMOGLOBIN 14.2 g/dl (13.5-17.5); MEAN CORPUSCULAR HEMOGLOBIN 29.2 pg (27.0-33.0); MEAN CORPUSCULAR HGB CONC 32.9 g/dl (32.0-36.5); MEAN CORPUSCULAR VOLUME 88.9 fl (80.0-96.0); PLATELET COUNT, AUTOMATED 337 10^3/uL (150-450); RED BLOOD COUNT 4.86 10^6/uL (4.30-6.10); WHITE BLOOD COUNT 10.3 10^3/uL (4.0-10.0)
[2021-06-28 08:07] LABS: BLOOD UREA NITROGEN 24 MG/DL (7-18); CALCIUM LEVEL 9.4 MG/DL (8.8-10.2); CARBON DIOXIDE LEVEL 31 MEQ/L (21-32); CHLORIDE LEVEL 102 MEQ/L (98-107); CREATININE FOR GFR 1.15 MG/DL (0.70-1.30); GLOMERULAR FILTRATION RATE > 60.0 (>42); GLUCOSE, FASTING 105 MG/DL (70-100); MAGNESIUM LEVEL 1.7 MG/DL (1.8-2.4); POTASSIUM SERUM 4.6 MEQ/L (3.5-5.1); SODIUM LEVEL 136 MEQ/L (136-145)
[2021-06-28] MEDS: MIRALAX *UNIT DOSE* 17GM PACKET PO SCH (08:16)
[2021-06-28] MEDS: TAMSULOSIN 0.4 MG CAP PO SCH (08:16)
[2021-06-28 08:17] VITALS: BP 137/74
[2021-06-28] MEDS: lisinopriL 5 MG TAB PO SCH (08:17)
[2021-06-28] MEDS: CARVedilol 3.125 MG TAB PO SCH (08:17)
[2021-06-28] MEDS ORDERED: MAGNESIUM OXIDE 400MG TAB (MAG-OX) PO ONE (08:30)
[2021-06-28] MEDS ORDERED: AMLO1TAB25 PO (09:01)
[2021-06-28] MEDS ORDERED: MIRA1POW3 PO (09:01)
[2021-06-28] MEDS ORDERED: LISI5TAB11 PO (09:01)
[2021-06-28] MEDS ORDERED: CARV3.12 PO (09:01)
[2021-06-28] MEDS ORDERED: FLOM0.4C39 PO (12:18)
== END 2021-06-28 12:52 | disposition home or self-care (01) | DRG 694 ==
LOC: M ED 16:56 → M ED INP 22:38 → ENRESERV 06-24 02:00 → M MSPAV 06-24 04:16
PROVIDERS: ADMIT Internal Medicine; ATTEND Family Medicine
DX: N13.30 Unspecified hydronephrosis (principal); N17.9 Acute kidney failure, unspecified; N40.1 Benign prostatic hyperplasia with lower urinary tract symptoms; Z87.891 Personal history of nicotine dependence; R31.9 Hematuria, unspecified; I16.0 Hypertensive urgency; K59.00 Constipation, unspecified; R33.9 Retention of urine, unspecified; N32.0 Bladder-neck obstruction; Z79.899 Other long term (current) drug therapy; Z20.822 Contact with and (suspected) exposure to COVID-19; Z91.048 Other nonmedicinal substance allergy status

== ENCOUNTER → 2021-07-25 | Outpatient (REF) | payer MEDICARE ==
[~2021-07-25] MED LIST changes: +CARV3.12 PO; +LISI5TAB11 PO; +MIRA1POW3 PO
== END ==
LOC: M SMT PRO 09:08
PROVIDERS: ATTEND Urology
DX: R97.20 Elevated prostate specific antigen [PSA] (principal)

== ENCOUNTER → 2021-08-09 | Outpatient (CLI) | payer SELFPAY | LOC: M WHC 14:16 | PROVIDERS: ATTEND Urology | DX: N28.1 Cyst of kidney, acquired (principal); N40.2 Nodular prostate without lower urinary tract symptoms; R97.20 Elevated prostate specific antigen [PSA] ==

== ENCOUNTER → 2021-09-13 | Outpatient (REF) | payer MEDICARE ==
[~2021-09-13] MED LIST changes: +BACTDSTA PO; +OXYB5TAB10 PO; +PYRI1TAB5 PO
== END ==
LOC: M SMT 15:03
PROVIDERS: ATTEND Urology
DX: R97.20 Elevated prostate specific antigen [PSA] (principal); Z79.899 Other long term (current) drug therapy

== ENCOUNTER → 2021-09-19 | Outpatient (CLI) | payer SELFPAY ==
[~2021-09-19] MED LIST changes: -OXYB5TAB10 PO; -PYRI1TAB5 PO
== END ==
LOC: M LABSMTC 09:57
PROVIDERS: ATTEND Anesthesiology
DX: Z11.52 Encounter for screening for COVID-19 (principal)

== ENCOUNTER → 2021-09-21 | Outpatient (CLI) | payer SELFPAY, MEDICARE ==
[~2021-09-21] MED LIST changes: +OXYB5TAB10 PO; +PYRI1TAB5 PO
[2021-09-21 10:42] LABS: HEMATOCRIT 46.1 % (42.0-52.0); HEMOGLOBIN 14.9 g/dl (13.5-17.5); MEAN CORPUSCULAR HEMOGLOBIN 28.8 pg (27.0-33.0); MEAN CORPUSCULAR HGB CONC 32.3 g/dl (32.0-36.5); PLATELET COUNT, AUTOMATED 305 10^3/uL (150-450); RED BLOOD COUNT 5.18 10^6/uL (4.30-6.10); WHITE BLOOD COUNT 8.8 10^3/uL (4.0-10.0)
[2021-09-21 10:52] LABS: INR 1.01; PROTHROMBIN TIME 13.7 SECONDS (12.7-14.5)
[2021-09-21 11:11] LABS: ALBUMIN 3.5 GM/DL (3.2-5.2); ALT/SGPT 19 U/L (12-78); BILIRUBIN,TOTAL 0.6 MG/DL (0.2-1.0); BLOOD UREA NITROGEN 10 MG/DL (7-18); CARBON DIOXIDE LEVEL 28 MEQ/L (21-32); CHLORIDE LEVEL 104 MEQ/L (98-107); CREATININE FOR GFR 0.78 MG/DL (0.70-1.30); GLOMERULAR FILTRATION RATE > 60.0 (>42); GLUCOSE, FASTING 99 MG/DL (70-100); POTASSIUM SERUM 4.5 MEQ/L (3.5-5.1); SODIUM LEVEL 137 MEQ/L (136-145); TOTAL PROTEIN 7.1 GM/DL (6.4-8.2)
== END ==
LOC: M WUC 08:15
PROVIDERS: ATTEND Urology
DX: R97.20 Elevated prostate specific antigen [PSA] (principal)

== ENCOUNTER 2021-09-24 11:23 | Day surgery (SDC) | payer SELFPAY ==
[~2021-09-24] VITALS: Ht 172.7 cm; Wt 92.5 kg
[~2021-09-24 11:23] MED LIST changes: -BACTDSTA PO; +CIPROFLOXACIN 400 MG in IV 1 EA IV ONE; -OXYB5TAB10 PO; -PYRI1TAB5 PO; +cefTRIAXone SOD 1 GM in D5W MINI-BAG PLUS 50 ML IV ONE
[2021-09-24] MEDS ORDERED: LR 1,000 ML IV SCH ×2 (12:25→16:25)
[2021-09-24] MEDS ORDERED: BACTDSTA PO (13:00)
[2021-09-24] MEDS ORDERED: fentaNYL 100 MCG/2 ML INJECTION As Ordered ONE ×2 (13:53→15:41)
[2021-09-24] MEDS ORDERED: SUCCINYLCHOLINE 100 MG/5 ML SYRINGE (J0330) As Ordered ONE (15:07)
[2021-09-24] MEDS ORDERED: ROCURONIUM BROMIDE 50 MG/5 ML VIAL As Ordered ONE (15:07)
[2021-09-24] MEDS ORDERED: ONDANSETRON 4MG 2ML VIAL As Ordered ONE (15:08)
[2021-09-24] MEDS ORDERED: dexameTHASONE 4 MG/ML 1ML VIAL (J1100 PER 1MG) As Ordered ONE (15:08)
[2021-09-24] MEDS ORDERED: ACETAMINOPHEN 1000MG 100ML IV BTL (OFIRMEV) (J0131 PER 10MG) As Ordered ONE (15:09)
[2021-09-24] MEDS ORDERED: propofoL 200 MG/20 ML VIAL As Ordered ONE ×2 (15:13→15:37)
[2021-09-24] MEDS ORDERED: ePHEDrine SULFATE 25 MG/5 ML(5MG/ML) SYRINGE As Ordered ONE (15:21)
[2021-09-24] MEDS ORDERED: PHENYLephrine 500MCG 5ML (100MCG/ML) SYRINGE As Ordered ONE (15:21)
[2021-09-24] MEDS ORDERED: ONDANSETRON 4MG 2ML VIAL IV PRN ×2 (16:25→16:40)
[2021-09-24] MEDS ORDERED: oxyCODONE 5MG TAB PO PRN (16:25)
[2021-09-24] MEDS ORDERED: ACETAMINOPHEN TAB 650MG DOSE (2X325MG) PO PRN (16:40)
[2021-09-24] MEDS ORDERED: NORCO, ANEXSIA 5/325MG TABLET (HYDROcodone/ACETAMINOPHEN) PO PRN (16:40)
[2021-09-24] MEDS: fentaNYL 100 MCG/2 ML INJECTION IV PRN ×4 (17:11→17:27)
[2021-09-24] MEDS: D5W/0.45% SODIUM CHLORIDE 1,000 ML IV SCH (19:04)
[2021-09-24 19:10] VITALS: BP 113/55
[2021-09-24 20:10] VITALS: BP 137/82
[2021-09-24] MEDS: CARVedilol 3.125 MG TAB PO SCH ×2 (21:00→22:46)
[2021-09-24 21:10] VITALS: BP 125/68
[2021-09-24 21:43] LABS: BASO % 0.2 % (0.0-1.0); HEMATOCRIT 43.8 % (42.0-52.0); HEMOGLOBIN 14.3 g/dl (13.5-17.5); LYMPH # 0.6 10^3/uL (1.5-5.0); LYMPH % 4.6 % (24.0-44.0); MEAN CORPUSCULAR HEMOGLOBIN 29.4 pg (27.0-33.0); MEAN CORPUSCULAR HGB CONC 32.6 g/dl (32.0-36.5); MEAN CORPUSCULAR VOLUME 89.9 fl (80.0-96.0); MONO # 0.2 10^3/uL (0.0-0.8); MONO % 1.7 % (2.0-8.0); NEUTROPHILS # 12.4 10^3/uL (1.5-8.5); NEUTROPHILS % 93.1 % (36.0-66.0); PLATELET COUNT, AUTOMATED 332 10^3/uL (150-450); RED BLOOD COUNT 4.87 10^6/uL (4.30-6.10); WHITE BLOOD COUNT 13.3 10^3/uL (4.0-10.0)
[2021-09-24 22:10] VITALS: BP 116/62
[2021-09-24] MEDS: oxyBUTYnin 5 MG TAB PO SCH (22:45)
[2021-09-24] MEDS: PHENAZOPYRIDINE 100 MG TAB PO SCH (22:53)
[2021-09-24 23:10] VITALS: BP 130/70
[2021-09-25] VITALS: BP 128/65
[2021-09-25] MEDS: CIPROFLOXACIN 400 MG in IV 1 EA IV SCH ×2 (00:47→14:01)
[2021-09-25] MEDS: D5W/0.45% SODIUM CHLORIDE 1,000 ML IV SCH ×2 (00:47→06:00)
[2021-09-25] MEDS ORDERED: MAALOX 30 ML SUSP *UDC PO ONE (01:00)
[2021-09-25 04:10] VITALS: BP 124/65
[2021-09-25 04:53] LABS: BASO % 0.1 % (0.0-1.0); HEMATOCRIT 40.1 % (42.0-52.0); HEMOGLOBIN 13.3 g/dl (13.5-17.5); LYMPH # 0.8 10^3/uL (1.5-5.0); LYMPH % 6.4 % (24.0-44.0); MEAN CORPUSCULAR HEMOGLOBIN 29.3 pg (27.0-33.0); MEAN CORPUSCULAR HGB CONC 33.2 g/dl (32.0-36.5); MEAN CORPUSCULAR VOLUME 88.3 fl (80.0-96.0); MONO # 0.8 10^3/uL (0.0-0.8); MONO % 6.6 % (2.0-8.0); NEUTROPHILS % 86.5 % (36.0-66.0); PLATELET COUNT, AUTOMATED 282 10^3/uL (150-450); RED BLOOD COUNT 4.54 10^6/uL (4.30-6.10); WHITE BLOOD COUNT 12.7 10^3/uL (4.0-10.0)
[2021-09-25 05:21] LABS: ALBUMIN 3.3 GM/DL (3.2-5.2); ALT/SGPT 15 U/L (12-78); BILIRUBIN,TOTAL 0.3 MG/DL (0.2-1.0); BLOOD UREA NITROGEN 16 MG/DL (7-18); CALCIUM LEVEL 8.4 MG/DL (8.8-10.2); CARBON DIOXIDE LEVEL 29 MEQ/L (21-32); CHLORIDE LEVEL 101 MEQ/L (98-107); CREATININE FOR GFR 1.14 MG/DL (0.70-1.30); GLOMERULAR FILTRATION RATE > 60.0 (>42); GLUCOSE, FASTING 129 MG/DL (70-100); POTASSIUM SERUM 4.8 MEQ/L (3.5-5.1); SODIUM LEVEL 134 MEQ/L (136-145); TOTAL PROTEIN 6.3 GM/DL (6.4-8.2)
[2021-09-25] MEDS: PHENAZOPYRIDINE 100 MG TAB PO SCH ×2 (08:52→20:56)
[2021-09-25] MEDS: CARVedilol 3.125 MG TAB PO SCH ×2 (08:53→20:56)
[2021-09-25] MEDS: oxyBUTYnin 5 MG TAB PO SCH ×2 (08:53→20:56)
[2021-09-25 10:00] VITALS: BP 130/57
[2021-09-25] MEDS ORDERED: OXYB5TAB10 PO (11:40)
[2021-09-25] MEDS ORDERED: PYRI1TAB5 PO (11:40)
[2021-09-25 14:00] VITALS: BP 131/62
[2021-09-25 18:00] VITALS: BP 135/65
[2021-09-25 22:00] VITALS: BP 140/65
[2021-09-26] MEDS: CIPROFLOXACIN 400 MG in IV 1 EA IV SCH (01:42)
[2021-09-26 06:00] VITALS: BP 122/67
[2021-09-26] MEDS: CARVedilol 3.125 MG TAB PO SCH (08:45)
[2021-09-26] MEDS: PHENAZOPYRIDINE 100 MG TAB PO SCH (08:46)
[2021-09-26] MEDS: oxyBUTYnin 5 MG TAB PO SCH (08:46)
[2021-09-26 08:47] VITALS: BP 144/73
[2021-09-26 10:00] VITALS: BP 134/71
== END 2021-09-26 11:57 | disposition home or self-care (01) ==
LOC: M SDC 11:23 → M MSPAV 18:32 → M SDC 09-26 11:57
PROVIDERS: ATTEND Urology
DX: N40.1 Benign prostatic hyperplasia with lower urinary tract symptoms (principal); R31.0 Gross hematuria; I10 Essential (primary) hypertension; Z79.899 Other long term (current) drug therapy; F41.9 Anxiety disorder, unspecified
CPT/HCPCS: 36415; 52601; 80053; 85025; 88305; 96365; 96366; J0131; J0330; J0744; J1100; J2370; J2405; J3010

== ENCOUNTER → 2021-11-21 | Outpatient (CLI) | payer MEDICARE ==
[~2021-11-21] MED LIST changes: +BACTDSTA PO; -CIPROFLOXACIN 400 MG in IV 1 EA IV ONE; +OXYB5TAB10 PO; +PYRI1TAB5 PO; -cefTRIAXone SOD 1 GM in D5W MINI-BAG PLUS 50 ML IV ONE
[2021-11-21 11:05] LABS: HEMATOCRIT 47.6 % (42.0-52.0); HEMOGLOBIN 15.3 g/dl (13.5-17.5); MEAN CORPUSCULAR HEMOGLOBIN 28.9 pg (27.0-33.0); MEAN CORPUSCULAR HGB CONC 32.1 g/dl (32.0-36.5); MEAN CORPUSCULAR VOLUME 89.8 fl (80.0-96.0); PLATELET COUNT, AUTOMATED 319 10^3/uL (150-450)
[2021-11-21 12:50] LABS: ALBUMIN 3.6 GM/DL (3.2-5.2); ALT/SGPT 19 U/L (12-78); BILIRUBIN,TOTAL 0.4 MG/DL (0.2-1.0); BLOOD UREA NITROGEN 7 MG/DL (7-18); CALCIUM LEVEL 9.7 MG/DL (8.8-10.2); CARBON DIOXIDE LEVEL 29 MEQ/L (21-32); CHLORIDE LEVEL 105 MEQ/L (98-107); CREATININE FOR GFR 0.78 MG/DL (0.70-1.30); GLOMERULAR FILTRATION RATE > 60.0 (>42); GLUCOSE, FASTING 97 MG/DL (70-100); POTASSIUM SERUM 4.6 MEQ/L (3.5-5.1); SODIUM LEVEL 137 MEQ/L (136-145)
== END ==
LOC: M PLAIMG 08:47
PROVIDERS: ATTEND Urology
DX: R33.9 Retention of urine, unspecified (principal)

== ENCOUNTER → 2021-12-12 | Outpatient (CLI) | payer SELFPAY, MEDICARE ==
[~2021-12-12] MED LIST changes: +DOCU100C16 PO; +LOSA25TA13 PO; +NITR100C2 PO; +TAMS1CAP17 PO
== END ==
LOC: M LABSMTC 10:05
PROVIDERS: ATTEND Anesthesiology
DX: Z01.818 Encounter for other preprocedural examination (principal); Z11.52 Encounter for screening for COVID-19

== ENCOUNTER → 2022-01-01 | Outpatient (REF) | payer MEDICARE ==
[~2022-01-01] MED LIST changes: +HYDR-3713 PO
== END ==
LOC: M SFHCADAM 12:26
PROVIDERS: ATTEND Family Medicine
DX: R82.90 Unspecified abnormal findings in urine (principal)

== ENCOUNTER → 2022-01-07 | Outpatient (REF) | payer MEDICARE ==
[~2022-01-07] MED LIST changes: -HYDR-3713 PO
== END ==
LOC: M SMT 16:48
PROVIDERS: ATTEND Urology
DX: N40.0 Benign prostatic hyperplasia without lower urinary tract symptoms (principal)

== ENCOUNTER → 2022-01-09 | Outpatient (CLI) | payer MEDICARE, SELFPAY ==
[~2022-01-09] MED LIST changes: +HYDR-3713 PO
== END ==
LOC: M LABSMTC 10:02
PROVIDERS: ATTEND Anesthesiology
DX: Z01.812 Encounter for preprocedural laboratory examination (principal); Z20.822 Contact with and (suspected) exposure to COVID-19

== ENCOUNTER → 2022-01-11 | Outpatient (CLI) | payer MEDICARE | LOC: M PLALAB 10:12 | PROVIDERS: ATTEND Family Medicine | DX: Z53.9 Procedure and treatment not carried out, unspecified reason (principal) ==

== ENCOUNTER → 2022-01-11 | Outpatient (REF) | payer MEDICARE ==
[2022-01-11 14:06] LABS: HEMATOCRIT 50.1 % (42.0-52.0); HEMOGLOBIN 15.7 g/dl (13.5-17.5); MEAN CORPUSCULAR HEMOGLOBIN 27.5 pg (27.0-33.0); MEAN CORPUSCULAR HGB CONC 31.3 g/dl (32.0-36.5); MEAN CORPUSCULAR VOLUME 87.9 fl (80.0-96.0); PLATELET COUNT, AUTOMATED 262 10^3/uL (150-450); WHITE BLOOD COUNT 7.9 10^3/uL (4.0-10.0)
[2022-01-11 15:04] LABS: ALBUMIN 3.7 GM/DL (3.2-5.2); ALT/SGPT 25 U/L (12-78); BILIRUBIN,TOTAL 0.4 MG/DL (0.2-1.0); BLOOD UREA NITROGEN 10 MG/DL (7-18); CALCIUM LEVEL 9.6 MG/DL (8.8-10.2); CARBON DIOXIDE LEVEL 26 MEQ/L (21-32); CHLORIDE LEVEL 103 MEQ/L (98-107); CREATININE FOR GFR 0.82 MG/DL (0.70-1.30); GLOMERULAR FILTRATION RATE > 60.0 (>42); GLUCOSE, FASTING 156 MG/DL (70-100); POTASSIUM SERUM 4.2 MEQ/L (3.5-5.1); SODIUM LEVEL 134 MEQ/L (136-145); TOTAL PROTEIN 7.5 GM/DL (6.4-8.2)
== END ==
LOC: M PLALAB 12:49
PROVIDERS: ATTEND Urology
DX: R33.9 Retention of urine, unspecified (principal)

== ENCOUNTER 2022-01-14 08:35 | Day surgery (SDC) | payer MEDICARE ==
[~2022-01-14] VITALS: Ht 170.2 cm; Wt 90.0 kg
[~2022-01-14 08:35] MED LIST changes: -HYDR-3713 PO; +ceFAZolin SOD 2 GM in IV 1 EA IV ONE
[2022-01-14] MEDS ORDERED: BACTDSTA PO (10:11)
[2022-01-14] MEDS ORDERED: LR 1,000 ML IV SCH ×2 (10:40→13:35)
[2022-01-14] MEDS ORDERED: propofoL 200 MG/20 ML VIAL As Ordered ONE (11:52)
[2022-01-14] MEDS ORDERED: ONDANSETRON 4MG 2ML VIAL As Ordered ONE (11:52)
[2022-01-14] MEDS ORDERED: dexameTHASONE 4 MG/ML 1ML VIAL (J1100 PER 1MG) As Ordered ONE (11:52)
[2022-01-14] MEDS ORDERED: LIDOCAINE 2% 100MG/5ML SDV (FOR ANES.) As Ordered ONE (11:52)
[2022-01-14] MEDS ORDERED: ROCURONIUM BROMIDE 50 MG/5 ML VIAL As Ordered ONE (11:52)
[2022-01-14] MEDS ORDERED: MIDAZOLAM INJ 2MG/2ML VIAL (J2250 PER 1MG) As Ordered ONE (11:53)
[2022-01-14] MEDS ORDERED: fentaNYL 250 MCG/5 ML INJECTION As Ordered ONE (11:53)
[2022-01-14] MEDS ORDERED: LACRILUBE (AKWA TEARS) OPHTH OINT 3.5 GM As Ordered ONE (12:29)
[2022-01-14] MEDS ORDERED: SUCCINYLCHOLINE 100 MG/5 ML SYRINGE (J0330) As Ordered ONE (12:47)
[2022-01-14] MEDS ORDERED: SUGAMMADEX SODIUM 500 MG/5 ML VIAL (BRIDION) As Ordered ONE ×2 (12:48→13:20)
[2022-01-14] MEDS ORDERED: MORPHINE 2 MG/ML 1ML VIAL IV PRN (13:35)
[2022-01-14] MEDS ORDERED: oxyCODONE 5MG TAB PO PRN (13:35)
[2022-01-14] MEDS ORDERED: fentaNYL 100 MCG/2 ML INJECTION IV PRN (13:35)
[2022-01-14] MEDS ORDERED: ONDANSETRON 4MG 2ML VIAL IV PRN (13:35)
[2022-01-14] MEDS ORDERED: HYDR-3713 PO (13:41)
[2022-01-14 14:50] VITALS: BP 159/82
== END 2022-01-14 15:37 | disposition home or self-care (01) ==
LOC: M SDC 08:35
PROVIDERS: ATTEND Urology
DX: N40.1 Benign prostatic hyperplasia with lower urinary tract symptoms (principal); R33.9 Retention of urine, unspecified; I10 Essential (primary) hypertension; K44.9 Diaphragmatic hernia without obstruction or gangrene; K21.9 Gastro-esophageal reflux disease without esophagitis; F41.9 Anxiety disorder, unspecified; F32.A Depression, unspecified; Z79.899 Other long term (current) drug therapy
CPT/HCPCS: 52601; 88305; J0330; J0690; J1100; J2250; J2405; J3010

== ENCOUNTER → 2022-10-07 | Outpatient (REF) | payer MEDICARE ==
[~2022-10-07] MED LIST changes: +HYDR-3713 PO; -ceFAZolin SOD 2 GM in IV 1 EA IV ONE
[2022-10-07 17:32] LABS: ALBUMIN 3.8 G/DL (3.2-5.2); ALKALINE PHOSPHATASE 75 U/L (46-116); ALT/SGPT 19 U/L (7.0-40); AST/SGOT < 8 U/L (<34); BILIRUBIN,TOTAL 0.5 MG/DL (0.3-1.2); BLOOD UREA NITROGEN 15 MG/DL (9-23); CALCIUM LEVEL 9.1 MG/DL (8.3-10.6); CARBON DIOXIDE LEVEL 29 MMOL/L (20-31); CHLORIDE LEVEL 102 MMOL/L (98-107); CREATININE FOR GFR 0.82 MG/DL (0.70-1.30); GLOMERULAR FILTRATION RATE > 60.0 (>42); GLUCOSE, FASTING 100 MG/DL (74-106); POTASSIUM SERUM 4.4 MMOL/L (3.5-5.1); SODIUM LEVEL 137 MMOL/L (136-145); TOTAL PROTEIN 6.7 G/DL (5.7-8.2)
== END ==
LOC: M SFHCADAM 15:15
PROVIDERS: ATTEND Family Medicine
DX: I10 Essential (primary) hypertension (principal)

== ENCOUNTER → 2024-06-18 | Outpatient (REF) | payer MEDICARE ==
[~2024-06-18] MED LIST changes: -CYCL5TAB PO; +CYCL5TAB4 PO; -MIRA1POW3 PO; +MIRA33506 PO; +NAPR-1405 PO; -NAPR500T6 PO; -OXYB5TAB10 PO; +OXYB5TAB14 PO; +TRAM1TAB42 PO; -TRAM37.53 PO
[2024-06-18 17:39] LABS: HEMATOCRIT 50.4 % (42.0-52.0); HEMOGLOBIN 16.4 g/dl (13.5-17.5); MEAN CORPUSCULAR HEMOGLOBIN 29.1 pg (27.0-33.0); MEAN CORPUSCULAR HGB CONC 32.5 g/dl (32.0-36.5); MEAN CORPUSCULAR VOLUME 89.4 fl (80.0-96.0); PLATELET COUNT, AUTOMATED 281 10^3/uL (150-450); RED BLOOD COUNT 5.64 10^6/uL (4.30-6.10); WHITE BLOOD COUNT 7.6 10^3/uL (4.0-10.0)
[2024-06-18 17:42] LABS: ALBUMIN 4.1 G/DL (3.2-5.2); ALKALINE PHOSPHATASE 78 U/L (40-129); ALT/SGPT 30 U/L (7.0-40); AST/SGOT 18 U/L (<34); BILIRUBIN,TOTAL 0.4 MG/DL (0.3-1.2); BLOOD UREA NITROGEN 8 MG/DL (9-23); CALCIUM LEVEL 9.9 MG/DL (8.3-10.6); CARBON DIOXIDE LEVEL 29 MMOL/L (20-31); CHLORIDE LEVEL 101 MMOL/L (98-107); CHOLESTEROL LEVEL 203 MG/DL (<200); CHOLESTEROL RISK RATIO 3.36 (<5); CREATININE FOR GFR 0.78 MG/DL (0.70-1.30); GLOMERULAR FILTRATION RATE > 60.0 (>42); GLUCOSE, FASTING 105 MG/DL (74-106); HDL CHOLESTEROL 60.4 MG/DL (>40); LDL CHOLESTEROL 118.4 MG/DL (<100); NON-HDL-C 142.6 MG/DL; POTASSIUM SERUM 4.6 MMOL/L (3.5-5.1); SODIUM LEVEL 140 MMOL/L (136-145); TOTAL PROTEIN 7.4 G/DL (5.7-8.2); TRIGLYCERIDES LEVEL 121 MG/DL (<150)
[2024-06-18 17:43] LABS: FREE T4 1.22 NG/DL (0.89-1.76)
[2024-06-18 18:36] LABS: HEMOGLOBIN A1c 5.8 % (4.0-6.0)
== END ==
LOC: M SFHCADAM 12:01
PROVIDERS: ATTEND Family Medicine
DX: I10 Essential (primary) hypertension (principal); E78.2 Mixed hyperlipidemia; Z13.1 Encounter for screening for diabetes mellitus